=== PATIENT | male | born 1980 | race Caucasian/White ===

== ENCOUNTER 2022-07-23 07:04 | Emergency (ER) | payer BC ==
[~2022-07-23] VITALS: Ht 188 cm; Wt 108.9 kg
[2022-07-23 07:09] VITALS: BP 161/77
--- NOTE | 2022-07-23 07:34 | NUR ---
42Y/O MALE PRESENTS TO ED WITH C/O CHEST PAIN SINCE THIS MORNING. PT REPORTS A CONSTANT, PRESSURE/CRUSHING LIKE, 5/10 NONRADIATING PAIN. PT DENIES DIZZINESS, HEADACHES, SOB OR USE OF MEDICATION. PT PLACED IN GOWN, ON BEDSIDE MONITOR, SIDE RAILS X1.
[2022-07-23] MEDS ORDERED: ALUMINUM HYD/MAG/SIMETHICONE 30 ML UDC PO ONE (07:45)
[2022-07-23 08:48] VITALS: BP 132/80
--- NOTE | 2022-07-23 08:49 | NUR ---
Patient discharged with v/s stable. Written and verbal after care instructions given and explained. Patient verbalized understanding. Ambulatory with steady gait. All questions addressed prior to discharge. Advised to follow up with PMD.
== END 2022-07-23 08:49 | disposition home or self-care (01) ==
LOC: MED 07:04
DX: R07.9 Chest pain, unspecified (principal)
CPT/HCPCS: 93005; 99283